=== PATIENT | male | born 1945 | race Caucasian/White ===

== ENCOUNTER 2016-10-16 07:59 | Outpatient (CLI) | payer MEDICARE, OTHER ==
[~2016-10-16] VITALS: Ht 172.7 cm; Wt 113.6 kg
--- NOTE | ~2016-10-16 | OP ---
PATIENT NAME: AMARILYS SANDY MEDICAL RECORD: [id number] :41 LOCATION:D.CAT ADMISSION DATE: SURGEON: ANTONIA INGRAM MD DATE OF OPERATION: 10/16/2016 PROCEDURES: 1. PTCA stent, circumflex and obtuse marginal. 2. PTCA, left circumflex. 3. Left heart catheterization. 4. Selective coronary angiography. 5. Left ventriculogram. INDICATIONS: Angina and coronary artery disease. PROCEDURE IN DETAIL: After informed consent was obtained and after detailed explanation of risks, benefits as well as alternative therapies, the patient elected to proceed with angiogram and angioplasty. The right radial area was prepped and draped in normal sterile fashion. The right radial artery was cannulated via modified Seldinger technique with placement of 6-Luxembourgish sheath. All catheters exchanged through this sheath. FINDINGS: The left ventriculogram was performed in standard 30-degree JAMES view, reveals good cardiac wall motion throughout all segments. Overall ejection fraction estimated at 60%. SELECTIVE CORONARY ANGIOGRAPHY: 1. Left main showed no significant angiographic disease. 2. Left anterior descending has at least 1 area of 70%-80% stenosis, which is very tortuous, will be better delineated with intravascular ultrasound. 3. Left circumflex has previously placed stent that is widely patent. However, proximal to the stent, there is 70%-80% stenosis. 4. The right coronary is totally occluded in the mid vessel, this is a chronic total occlusion. The distal right coronary fills via mzol-vb-womch collaterals. PTCA STENT OF THE LEFT CIRCUMFLEX: The stent used was a 3.0 x 18 mm Resolute, this caused a plaque shift into the circumflex itself. Circumflex was ballooned with 2.5 balloon. Result was 0% residual throughout. OVERALL IMPRESSION: Successful percutaneous transluminal coronary angioplasty stent of the left circumflex going from 80% initial stenosis to 0% residual. PLAN: PTCA stent of the LAD in the near future. TRANSINT:[id number] Voice Confirmation ID: [id number] DOCUMENT ID: [id number] ANTONIA INGRAM MD CC: [id number] DICTATION DATE: 10/16/16 1047 TELEPHONE SALES AGENT: 10/16/162010 DEP CLI 10/16/16 [place] [address]
--- NOTE | ~2016-10-16 | HEMODYNAMI ---
PATIENT:AMARILYS SANDY MEDICAL RECORD: [id number] : 41 LOCATION:[place] ADMISSION DATE: 10/16/16 Generatedon:10/16/201610:47 Patient name: AMARILYS SANDY Patient #: [id number] SSN: : 1945 Date of study: 10/16/2016 Page: Of Hemodynamic Procedure Report Patient Data Patient Demographics Procedure consent was obtained First Name: AMARILYS Gender: Male Last Name: DU : 1945 Middle Initial: L Age: 71 year(s) Patient #: [id number] Race: Unknown Additional ID: [id number] Contact details Address: [facility] [address] State: [place] City: [place] Zip code: [address] Past Medical History Allergies Allergen Reaction Date Comments Reported Other allergy 10/16/2016 Avelox, cepholosporino, Clindamycin, Dilaudid,Keflex, Levotyroxin, Minipreso, PCN, Norvaco, Pravastatin, Sulfa,Zocor. Admission Admission Data Admission Date: 10/16/2016 Admission Time: 7:59 Lab Results Lab Result Date: 10/16/2016 Lab Result Time: 0:00 Biochemistry Name Units Result Min Max BUN mg/dl 15 --(--*-)-- 7 18 Creatinine mg/dl 0.9 --(-*--)-- 0.6 1.3 CBC Name Units Result Min Max Hematocrit % 40 -*(----)-- 42 54 Hemoglobin g/dl 13.5 --(*---)-- 13.5 17.5 Procedure Procedure Types Cath Procedure Diagnostic Procedure C [facility] w/Coronaries PCI Procedure Coronary Stent Initial PTCA Additional Miscellaneous Procedures Moderate Sedation up to 30 minutes Procedure Description Procedure Date Procedure Date: 10/16/2016 Procedure Start Time: 10:28 Procedure End Time: 10:46 Procedure Staff Name Function Geoff Perez MD Performing Physician Marci Counts RT Scrub Matthew Ames RN Nurse Ramon Chiang RT Monitor Procedure Data Cath Procedure Fluoroscopy Diagnostic fluoroscopy Total fluoroscopy Time: 5.6 time: 5.6 min min Diagnostic fluoroscopy Total fluoroscopy dose: dose: 478.63 mGy 478.63 mGy Contrast Material Contrast Material Type Amount (ml) Isovue 300 93 Entry Location Entry Primary Successful Side Size Upsize Upsize Entry Closure Emerson ccessful Closure Location (Fr) 1 (Fr) 2 (Fr) Remarks Device Remarks Radial Right 6 Fr Mechanical artery Short Compression Estimated blood loss: 10 ml Diagnostic catheters Device Type Used For End Catheter Placement Terumo 5Fr Elsie 110cm Procedure catheter Procedure Complications No complications Procedure Medications Medication Administration Route Dosage Oxygen NC 2 l/min Heparin Flush Bag added to field 2 bags (1000units/500ml NS) 0.9% NaCl I.V. 100 ml/hr Radial Cocktail added to field 1 syringe (Verapomil 2mg/Nitro 400mcg/Heparin 1500units) Fentanyl I.V. 50 mcg Versed I.V. 1 mg Fentanyl I.V. 50 mcg Versed I.V. 1 mg Radial Cocktail I.A. 1 syringe (Verapomil 2mg/Nitro 400mcg/Heparin 1500units) Heparin Bolus I.V. 4000 units Integrilin (Bolus I.V. 10.2 ml 2mg/ml) Plavix P.O. 600 mg Hemodynamics Rest HGB: 13.5 (g/dl) Heart Rate: 57 (bpm) Snapshots Pre Cath Intra NCS Post Cath Vital Signs Time Heart Resp SPO2 NIBP (mmHg) Rhythm Pain Sedation Rate (ipm) (%) Status Level (bpm) 10:14:51 54 17 98 224/102(177) NSR 0 (11) 10(A) , No pain 10:19:46 53 19 90 201/94(162) NSR 0 (11) 10(A) , No pain 10:24:35 56 18 96 173/103(131) NSR 0 (11) 10(A) , No pain 10:29:19 56 19 94 155/86(127) NSR 0 (11) 9(A) , No pain 10:33:42 61 18 94 131/83(106) NSR 0 (11) 9(A) , No pain 10:38:02 60 18 95 132/93(128) NSR 0 (11) 9(A) , No pain 10:42:30 59 18 96 138/77(128) NSR 0 (11) 9(A) , No pain 10:46:34 57 16 97 152/82(113) NSR 0 (11) 9(A) , No pain Medications Time Medication Route Dose Verified Delivered Reason Note s Effectiveness by by 10:13:45 Oxygen NC 2 l/min Matthew Castro Per physician Kwaku mAes RN RN 10:13:58 Heparin Flush added 2 bags Matthew Castro used for Bag to Kwaku Ames RN procedure (1000units/500ml field RN NS) 10:14:13 0.9% NaCl I.V. 100 Matthew Castro Per physician ml/hr Kwaku Ames RN RN 10:14:22 Radial Cocktail added 1 Matthew Castro used for (Verapomil to syringe Kwaku Ames RN procedure 2mg/Nitro field RN 400mcg/Heparin 1500units) 10:23:32 Fentanyl I.V. 50 mcg Matthew Hwangy for sedation Kwaku Ames RN RN 10:23:40 Versed I.V. 1 mg Matthew Hwangy for sedation Kwaku Ames RN RN 10:26:03 Fentanyl I.V. 50 mcg Matthew Castro for sedation Kwaku Ames RN RN 10:26:09 Versed I.V. 1 mg Matthew Hwangy for sedation Kwaku Ames RN RN 10:29:19 Radial Cocktail I.A. 1 Matthew Coylerey for (Verapomil syringe Kwaku Perez MD vasodilation 2mg/Nitro RN 400mcg/Heparin 1500units) 10:37:43 Integrilin I.V. 10.2 ml Matthew Castro for wast ed (Bolus 2mg/ml) Kwaku Ames RN antiplatelet 9.8mL of RN therapy integrilin bolus 10:37:43 Heparin Bolus I.V. 4000 Matthew Castro for units Kwaku Ames RN anticoagulation RN 10:46:54 Plavix P.O. 600 mg Matthew Castro for Kwaku Ames RN antiplatelet RN therapy Procedure Log Time Note 9:50:51 Matthew Ames RN sent for patient. Start room use. 9:58:52 Time tracking: Regular hours 9:58:56 Plan of Care:Hemodynamics will remain stable., Cardiac rhythm will remain stable., Comfort level will be maintained., Respiratory function will remain adequate., Patient/ family verbilizes understanding of procedure., Procedure tolerated without complication., Recovers from procedure without complications.. 10:06:10 Patient received from Pre/Post Procedure Room to CCL 3 Alert and oriented. Tansferred to table in Supine position. 10:06:12 Warm blankets applied, and shaun hugger turned on for patient comfort. 10:06:13 Correct patient and procedure confirmed by team. 10:06:14 Signed procedure consent form obtained from patient. 10:06:15 ECG and BP/O2 sat monitors applied to patient. 10:06:17 Full Disclosure recording started 10:11:46 Vital chart was started 10:13:45 Oxygen 2 l/min NC was administered by Matthew Ames RN; Per physician; 10:13:58 Heparin Flush Bag (1000units/500ml NS) 2 bags added to field was administered by Matthew Ames RN; used for procedure; 10:14:13 0.9% NaCl 100 ml/hr I.V. was administered by Matthew Ames RN; Per physician; 10:14:22 Radial Cocktail (Verapomil 2mg/Nitro 400mcg/Heparin 1500units) 1 syringe added to field was administered by Matthew Ames RN; used for procedure; 10:17:41 Baseline sample Acquired. 10:17:48 Rhythm: sinus rhythm 10:18:01 H&P Date Dictated: 10/16/2016 Within 30 days and on chart., H&P Addendum completed by physician on day of procedure. (MUST COMPLETE FOR ALL OUTPATIENTS). 10:18:02 Pre-procedure instructions explained to patient. 10:18:03 Pre-op teaching completed and patient verbalized understanding. 10:18:05 Family in patients room. 10:18:06 Patient NPO since Midnight. 10:21:39 Patient allergic to Other allergyAvelox, cepholosporino, Clindamycin, Dilaudid,Keflex, Levotyroxin, Minipreso, PCN, Norvaco, Pravastatin, Sulfa,Zocor. 10:21:41 Is the patient allergic to Iodine/contrast media? No. 10:21:43 Is patient on blood thinner?No 10:21:44 Patient diabetic? No. 10:21:46 Previous problem with sedation/anesthesia? No ? 10:21:47 Snore? Yes 10:21:48 Sleep apnea? Yes 10:21:49 Deviated septum? No 10:21:49 Opens mouth fully? Yes 10:21:50 Sticks out tongue? Yes 10:21:54 Airway obstruction? No ? 10:21:56 Dentures? No ? 10:21:58 Modified Chris's test Ulnar < 7 seconds 10:21:59 Patient pain scale 0/10 ?. 10:22:03 IV patent on arrival in left hand with 0.9% NaCl at [facility]. 10:22:36 Lab Result : Creatinine 0.9 mg/dl 10::36 Lab Result : BUN 15 mg/dl 10:22:36 Lab Result : Hemoglobin 13.5 g/dl 10:22:36 Lab Result : Hematocrit 40 % 10:22:39 Lab results completed and on chart. 10:22:41 Right Radial & Right Groin area was prepped with chlora-prep and draped in sterile fashion 10:22:42 Alarms reviewed by R. N. 10:22:42 Sharps counted by scrub and verified by R.N. 10:22:44 Use device set Radial Dx 10:22:45 Tegaderm 4 x 4 opened to sterile field. 10:22:46 Acist Manifold opened to sterile field. 10:22:48 Acist Hand Control opened to sterile field. 10:22:49 Acist Syringe opened to sterile field. 10:22:49 Medline Cath Pack opened to sterile field. 10:22:50 Bag Decanter opened to sterile field. 10:22:50 Terumo 6Fr Slender Glidesheath opened to sterile field. 10:22:51 St Benito 260cm J .035 wire opened to sterile field. 10:22:57 Physician arrived 10::58 --------ALL STOP TIME OUT------ 10::58 Final Timeout: patient, procedure, and site verified with staff and physician. All members of the team are in agreement. 10:23:00 Right Radial & Right Groin site verified by team. 10:23:02 Physical assessment completed. ASA score P 2 - A patient with mild systemic disease as per Geoff Perez MD. 10:23:04 Sedation plan: IV Moderate Sedation Versed, Fentanyl 10:23:32 Fentanyl 50 mcg I.V. was administered by Matthew Ames RN; for sedation; 10:23:40 Versed 1 mg I.V. was administered by Matthew Ames RN; for sedation; 10:26:03 Fentanyl 50 mcg I.V. was administered by Matthew Amse RN; for sedation; 10::09 Versed 1 mg I.V. was administered by Matthew Ames RN; for sedation; 10::17 Zero performed for pressure channel P1 10::28 Procedure started. 10::32 Local anesthetic to right radial artery with Lidocaine 2% by Geoff Perez MD.INITIAL ACCESS ONLY 10:28:47 A 6 Fr Short sheath was inserted into the Right Radial artery 10:29:19 Radial Cocktail (Verapomil 2mg/Nitro 400mcg/Heparin 1500units) 1 syringe I.A. was administered by Geoff Perez MD; for vasodilation; 10:29:46 A Pro Player Connectumo 5Fr Elsie 110cm catheter was advanced over the wire and used for Procedure. 10:30:24 Cook [facility] 260CM glide wire opened to sterile field. 10:30:52 glide wire advanced. 10:31:00 Wire removed. 10:31:56 LV gram done using JAMES 10:31:59 Injector settings: Ml/sec: 5, Volume: 15, 10:32:04 EF : 60 % 10:32:08 LCA angiography performed. 10:33:18 Barroso Whisper J 300cm 0.014 guide wire opened to sterile field. 10:33:19 Translimit BasixCompak Inflation Kit opened to sterile field. 10:34:56 Catheter removed. 10:35:41 Cordis 6FR XBLAD 3.5 guide catheter opened to sterile field. 10:37:28 6 Fr xblad 3.5 guide catheter was inserted over the wire 10:37:30 Shopzillaisper wire advanced. 10:37:43 Integrilin (Bolus 2mg/ml) 10.2 ml I.V. was administered by Matthew Ames RN; for antiplatelet therapy; wasted 9.8mL of integrilin bolus 10:37:43 Heparin Bolus 4000 units I.V. was administered by Matthew Ames RN; for anticoagulation; 10:38:11 Wire advanced across lesion. 10:38:49 Inflation Number: 1 A Medtronic Resolute 3.0 X 18 stent was prepped and advanced across the 1st Ob Joslyn. The stent was deployed at 17 [place] for 0:10 (min:sec). 10:39:37 Stent catheter was removed intact over wire. 10:41:02 Inflation number: 1 A Euphora 2.5 x 12 Balloon was prepped and advanced across the Mid CX, then inflated to 17 [place] for 0:10 (min:sec). 10:41:42 Inflation number: 2 The Euphora 2.5 x 12 Balloon was reinflated across the Mid CX, to 17 [place] for 0:10 (min:sec). 10:41:58 Balloon removed over the wire. 10:41:59 Wire removed. 10:41:59 Guide catheter removed. 10:43:01 Terumo TR Band Standard opened to sterile field. 10:43:29 Sheath removed intact; hemostasis achieved with Mechanical Compression to the Right Radial artery. 10:43:31 Procedure ended.(Physican Out) 10:43:42 Fluoroscopy time 05.60 minutes. 10:43:49 Fluoroscopy dose: 478.63 mGy 10:43:49 Flurop Dose total: 478.63 10:43:52 Contrast amount:Isovue 300 93ml. 10:43:54 Sharps counted by scrub and verified by R.N. 10:44:11 TR band inflated with 12cc of air. 10:44:12 Insertion/operative site no bleeding no hematoma. 10:44:19 Post right radial artery:stable, clean and dry 10:44:21 Post Procedure Pulses reassessed and unchanged 10:44:23 Post-procedure physical assessment completed. ASA score P 2 - A patient with mild systemic disease as per Geoff Perez MD. 10:44:25 Post procedure rhythm: unchanged. 10:44:27 Estimated blood loss: 10 ml 10:44:37 Post procedure instruction explained to patient.Patient verbalizes understanding. 10:44:37 Patient needs reinforcement of post procedure teaching. 10:45:19 Procedure type changed to Cath procedure, Diagnostic procedure, LHC, LHC w/Coronaries, PCI procedure, Coronary Stent Initial, PTCA Additional, Miscellaneous Procedures, Moderate Sedation up to 30 minutes 10:46:17 Procedure and supply charges have been captured, reviewed, submitted and are correct. 10:46:18 Procedure Complication : No complications 10:46:20 Vital chart was stopped 10:46:20 See physician's report for complete and final results. 10:46:22 Report given to Pre/Post Procedure Room. 10:46:24 Patient transfered to Pre/Post Procedure Room with Stretcher. 10:46:25 Procedure ended. 10:46:25 Full Disclosure recording stopped 10:46:54 Plavix 600 mg P.O. was administered by Matthew Ames RN; for antiplatelet therapy; 10:47:13 End room use (Document Last) Intervention Summary Intervention Notes Time ActionType Lesion and Equipment Action# Pressure Duration Attributes Used 10:38:[address] Place stent 1st Ob Joslyn Medtronic 1 17 00:10 Resolute 3.0 X 18 stent 10:41:02 Inflate Mid CX Euphora 1 17 00:10 balloon 2.5 x 12 Balloon 10:41:42 Reinflate Mid CX Euphora 2 17 00:10 balloon 2.5 x 12 Balloon Device Usage Item Name Manufacture Quantity Catalog Hospital Part Current Minimal Lot# / Number Charge Number Stock Stock Serial# Code Tegade 4 1 [id number] [id number] 779428 5 x 4 Acist Acist 1 79268 849319 072908 181233 5 Manifold Medical Systems Inc Acist Hand Acist 1 65637 289072 831000 514800 5 Control Medical Systems Inc Acist Acist 1 48003 574176 733221 315200 20 Syringe Medical Systems Inc Medline Cardinal 1 [id number] 170386 99158 069250 5 Cath Pack Health Bag Microtek 1 2001S 743466 47921 527574 5 DecN4MD Medical Inc. Terumo 6Fr Terumo 1 [id number] 673091 209194 796621 [address] [place] 1 557878 467154 685996 427845 30 260cm J .035 wire Terumo 5Fr Terumo 1 40-0580 411949 740946 509068 5 Elsie 110cm catheter Per[employer]ual Technologies 1 [id number] 397580 220866 5 ROADRUNNER FIRM 260CM glide wire Barroso Barroso 1 [id number] 566191 900230 553954 5 Whisper J Vascular 300cm 0.014 guide wire Merit Merit 1 [id number] 253969 318072 680076 15 Segmint Medical Inflation Kit Cordis 6FR Cardinal 1 [id number] 709579 600674 041003 10 XBLAD 3.5 Health guide catheter Medtronic Medtronic 1 [id number] 362295 657143 2 [id number] Resolute 3.0 X 18 stent Euphora 2.5 Medtronic 1 [id number] 968921 245299 821814 5 [id number] x 12 Balloon Terumo TR Terumo 1 [id number] 877964 307686 341285 40 Band Standard Signature Audit [place] Stage Time Signature Unsigned Intra-Procedure 10/16/2016 Ramon Chiang 10:47:28 AM RT(R) Signatures Monitor : Ramon Chiang RT Signature : Date : Time : [place] [id number] [place] [address]
[2016-10-16] MEDS ORDERED: NORMODYNE / TR300 MG PO (08:32)
[2016-10-16] MEDS ORDERED: ASPIRIN325 MG PO (08:32)
[2016-10-16] MEDS ORDERED: DYAZIDE 37.5/251 CAP PO (08:33)
[2016-10-16] MEDS ORDERED: LIPITOR40 MG PO (08:33)
[2016-10-16] MEDS ORDERED: PRINIVIL20 MG PO (08:33)
[2016-10-16 08:35] VITALS: BP 190/72; Ht 172.7 cm; Wt 113.6 kg
[2016-10-16 09:13] LABS: BASOPHILS 0.5 % (0.0-2.0); EOSINOPHILS 5.5 % (0-7); HEMOGLOBIN 13.5 g/dL (13.5-17.5); IMMATURE GRANULOCYTES 0.3 % (0-5); LYMPHOCYTES 33.6 % (15-50); MCHC 33.8 g/dL (31.0-37.0); MCV 91.7 fL (80.0-100.0); MEAN PLATELET VOLUME 10.3 fL (7.4-10.4); MONOCYTES 11.4 % (2-11); NEUTROPHILS 48.7 % (40-80); PLATELET COUNT 241 10x3/uL (130-400); RBC 4.36 10x6/uL (4.20-6.10); RDW 14.4 % (11.5-14.5); WBC 6.3 10x3/uL (4.8-10.8)
[2016-10-16 09:21] LABS: CALC OSMOLALITY 281 mosm/kg (275-300); CALCIUM 8.3 mg/dL (8.5-10.1); CHLORIDE - SERUM 106 mmol/L (98-107); CREATININE - SERUM 0.9 mg/dL (0.6-1.3); GLUCOSE 107 mg/dL (74-106); POTASSIUM - SERUM 4.2 mmol/L (3.5-5.1); SODIUM 141 mmol/L (136-145); UREA NITROGEN 15 mg/dL (7-18); eGFR NON AFRICAN AMERICAN 88 mL/min (90-120)
--- NOTE | 2016-10-16 10:19 | HP ---
PATIENT: AMARILYS MCMILLAN MEDICAL RECORD: [id number] ACCOUNT: [id number] LOCATION:[place] : 41 ADMISSION DATE: 10/16/16 HISTORY AND PHYSICAL EXAMINATION DIAGNOSES: 1. Angina. 2. Shortness of breath. 3. Hypertension. 4. Hyperlipidemia. HISTORY OF PRESENT ILLNESS: Mr. Mcmillan presents with anginal symptomatology, found to have a perfusion defect inferiorly on nuclear stress test continued symptomatology despite maximal medical therapy. He is now brought for cardiac catheterization. PHYSICAL EXAMINATION: GENERAL APPEARANCE: Well-nourished, well-developed, appears stated age. Level of distress, comfortable. PSYCHIATRIC: Mental status, alert, normal affect. Orientation, oriented to time, place and person. EYES: Lids and conjunctiva, noninjected. No discharge, no pallor. ENT: Lips, teeth, gums, normal dentition. Oropharynx, no cyanosis, no pallor. NECK: Carotid arteries, bilateral normal upstroke, no bruits, no thrills. JUGULAR VEINS: No jugular venous pressure or distention. CERVICAL LYMPH NODES: Nontender, nonenlarged. THYROID: Not enlarged. Nontender. No nodules. LUNGS: Respiratory effort, unlabored. CHEST: Normal curvature. No thoracic deformity. No chest wall tenderness. Percussion, resonant. Auscultation, clear. No wheezes, no rales, no rhonchi. CARDIOVASCULAR: Precordial exam, nondisplaced. No heaves or pericardial thrills. Rate and rhythm, regular. Heart sounds, normal S1, normal S2. No S3, no gallop, no rub. Systolic murmur, not heard. Diastolic murmur, not heard. EXTREMITIES: No cyanosis, no edema. Peripheral pulses, full and equal in all extremities, except as noted. No bruits appreciated. ABDOMEN: Soft, nondistended. Normal aorta. No bruit. Nontender. No masses. Liver, nontender, no hepatomegaly. Spleen, nontender, no splenomegaly. MUSCULOSKELETAL: No joint tenderness. No joint swelling. No erythema. NEUROLOGICAL: Normal gait, normal strength, normal tone. SKIN: Warm and dry. REVIEW OF SYSTEMS: The patient reports easy bruising but reports no swollen glands. The patient reports no fever, no night sweats, no significant weight gain, no significant weight loss. No significant exercise tolerance. The patient reports no dry eyes, no irritation, no vision change. Patient reports no difficulty hearing and no ear pain. Patient reports no frequent nose bleeds or nose and sinus problems. Patient reports on arm pain on exertion. No shortness of breath while lying down. No history of heart murmur. Patient reports no cough, no wheezing or coughing up blood. Patient reports no abdominal pain, no vomiting. Normal appetite. No diarrhea and not vomiting blood. No nausea and no constipation. Patient reports no incontinence. No difficulty urinating. No hematuria. No increased frequency. Patient reports no muscle aches. No weakness, no arthralgias, no back pain. No swelling of the extremities. Patient reports no abnormal mole, no jaundice, no rashes. Reports no loss of consciousness. No weakness and no numbness. No seizures, dizziness, HISTORY AND PHYSICAL [id number] AMARILYS MCMILLAN or headaches. The patient reports no depression, no sleep disturbance, feeling safe in a relationship and no alcohol abuse. Patient reports on fatigue. Reports no runny nose or sinus pressure. No itching, no hives, and no frequent sneezing. OVERALL IMPRESSION: Anginal symptomatology despite maximal medical therapy. We will proceed with coronary angiography. Further care depends upon findings of the angiography. TRANSINT:[id number] Voice Confirmation ID: [id number] DOCUMENT ID: [id number] ANTONIA INGRAM MD at 1019 CC: [id number] DICTATION DATE: 10/16/16917 JUNIOR QA ANALYST: 10/16/16 0950 [facility] [address] [place] [address]
[2016-10-16] MEDS ORDERED: PLAVIX75 MG PO (11:26)
--- NOTE | 2016-10-16 12:02 | NUR ---
1115 SITTING UP IN BED SIPPING COFFE, VITALS ALL WNL. R WRIST TR BAND C/D/I WITH NO HEMATOMA OR BLEEDING.
--- NOTE | 2016-10-16 14:27 | NUR ---
1145 SITTING UP IN BED, SLEEPING. VITALS ALL WNL. R WRIST TR BAND C/D/I WITH NO HEMATOMA OR BLEEDING. AT SIDE.
--- NOTE | 2016-10-16 14:30 | NUR ---
4 CC AIR REMOVED FROM R WRIST TR BAND. WILL MONITOR CLOSELY FOR BLEEDING.
--- NOTE | 2016-10-16 14:55 | NUR ---
2CC AIR REMOVED FROM R WRIST TR BAND. PIV REMOVED FROM LEFT HAND WITH BANDAID APPLIED. UP TO BEDSIDE TO DRESS WITH ASSIST FROM .
--- NOTE | 2016-10-16 14:58 | NUR ---
TR BAND REMOVED FROM R WRIST, TEGADERM AND COTTON BALL APPLIED. D/C INSTRUCTIONS DISCUSSED WITH PATIENT. RETURN TIME FOR NEXT WEDNESDAY DISCUSSED WITH PATIENT. WHEELED OUT VIA WHEELCHAIR.
== END 2016-10-16 15:00 | disposition home or self-care (01) ==
LOC: D.CATH 07:59
PROVIDERS: Internal Medicine Interventional Cardiology
DX: I25.119 Atherosclerotic heart disease of native coronary artery with unspecified angina pectoris (principal); I10 Essential (primary) hypertension; E78.5 Hyperlipidemia, unspecified; R06.02 Shortness of breath; R94.30 Abnormal result of cardiovascular function study, unspecified
CPT/HCPCS: 93458; C9600

== ENCOUNTER 2016-10-21 07:50 | Outpatient (CLI) | payer MEDICARE, OTHER ==
[~2016-10-21] VITALS: Ht 172.7 cm; Wt 113.6 kg
--- NOTE | ~2016-10-21 | OP ---
PATIENT NAME: AMARILYS SANDY MEDICAL RECORD: [id number] :41 LOCATION:D.CAT ADMISSION DATE: SURGEON: ANTNOIA INGRAM MD DATE OF OPERATION: 10/21/2016 PROCEDURES: 1. PTCA stent LAD. 2. Selective coronary angiography. 3. Intravascular ultrasound. INDICATION: Angina and coronary artery disease. PROCEDURE IN DETAIL: After informed consent was obtained and after detailed explanation of risks, benefits as well as alternative therapies, the patient elected to proceed with angiogram and angioplasty. The right radial area was prepped and draped in normal sterile fashion. Right radial artery was cannulated via modified Seldinger technique with placement of 6-Mohawk sheath. All catheters exchanged through this sheath. FINDINGS: The left anterior descending has a 74% stenosis proximally confirmed by intravascular ultrasound. This was addressed with 3.0 x 30 and 2.75 x 12, both Resolute stents. Result was 0% residual stenosis. OVERALL IMPRESSION: Successful percutaneous transluminal coronary angioplasty stent of the left anterior descending going from 74% initial stenosis confirmed by intravascular ultrasound to 0% residual stenosis. TRANSINT:[id number] Voice Confirmation ID: [id number] DOCUMENT ID: [id number] ANTONIA INGRAM MD CC: [id number] DICTATION DATE: 10/21/16 0951 GRAINING PRESS OPERATOR: 10/21/16 1125 [facility] [address] [place] [id number]
--- NOTE | ~2016-10-21 | HEMODYNAMI ---
PATIENT:AMARILYS SANDY MEDICAL RECORD: [id number] : 41 LOCATION:[facility] ADMISSION DATE: 10/21/16 Generatedon:10/21/20169:52 Patient name: AMARILYS SANDY Patient #: [id number] SSN: : 1945 Date of study: 10/21/2016 Page: Of Hemodynamic Procedure Report Patient Data Patient Demographics Procedure consent was obtained First Name: AMARILYS Gender: Male Last Name: DU : 1945 Middle Initial: L Age: 71 year(s) Patient #: [id number] Race: Unknown Additional ID: [id number] Contact details Address: [address] [place] [address] State: [place] City: [place] Zip code: [address] Past Medical History Allergies Allergen Reaction Date Comments Reported Other allergy 10/16/2016 Avelox, cepholosporino, Clindamycin, Dilaudid,Keflex, Levotyroxin, Minipreso, PCN, Norvaco, Pravastatin, Sulfa,Zocor. Admission Admission Data Admission Date: 10/21/2016 Admission Time: 7:50 Lab Results Lab Result Date: 10/21/2016 Lab Result Time: 0:00 Biochemistry Name Units Result Min Max BUN mg/dl 15 --(--*-)-- 7 18 Creatinine mg/dl 0.9 --(-*--)-- 0.6 1.3 CBC Name Units Result Min Max Hemoglobin g/dl 13.8 --(*---)-- 13.5 17.5 Procedure Procedure Types Cath Procedure Diagnostic Procedure FFR/IVUS Intra-Coronary IVUS Initial PCI Procedure Coronary Stent Initial Miscellaneous Procedures Moderate Sedation up to 30 minutes Procedure Description Procedure Date Procedure Date: 10/21/2016 Procedure Start Time: 9:34 Procedure End Time: 9:50 Procedure Staff Name Function Geoff Perez MD Performing Physician Eduardo Santiago RT Scrub Shea Villalpando RN Nurse Evangelist Suit RT Monitor Procedure Data Cath Procedure Fluoroscopy Diagnostic fluoroscopy Total fluoroscopy Time: 5.6 time: 5.6 min min Diagnostic fluoroscopy Total fluoroscopy dose: dose: 1012 mGy 1012 mGy Contrast Material Contrast Material Type Amount (ml) Isovue 300 118 Entry Location Entry Primary Successful Side Size Upsize Upsize Entry Closure Emerson ccessful Closure Location (Fr) 1 (Fr) 2 (Fr) Remarks Device Remarks Radial Right 6 Fr Mechanical artery Short Compression Procedure Complications No complications Procedure Medications Medication Administration Route Dosage Oxygen NC 2 l/min Heparin Flush Bag added to field 2 bags (1000units/500ml NS) Lidocaine 2% added to field 20 Radial Cocktail added to field 1 syringe (Verapomil 2mg/Nitro 400mcg/Heparin 1500units) Versed I.V. 1 mg Fentanyl I.V. 50 mcg Versed I.V. 1 mg Fentanyl I.V. 50 mcg Heparin Bolus I.V. 4000 units Radial Cocktail I.A. 1 syringe (Verapomil 2mg/Nitro 400mcg/Heparin 1500units) Fentanyl I.V. 50 mcg Hemodynamics Rest HGB: 13.8 (g/dl) Heart Rate: 57 (bpm) Snapshots Pre Cath Intra NCS Post Cath Vital Signs Time Heart Resp SPO2 NIBP (mmHg) Rhythm Pain Sedation Rate (ipm) (%) Status Level (bpm) 9:19:13 54 16 98 223/104(180) NSR 0 (11) 10(A) , No pain 9:23:55 54 19 100 222/103(175) NSR 0 (11) 10(A) , No pain 9:28:26 57 16 97 188/101(151) NSR 0 (11) 10(A) , No pain 9:32:54 52 16 97 183/90(142) NSR 0 (11) 10(A) , No pain 9:37:08 61 16 96 134/90(119) NSR 0 (11) 9(A) , No pain 9:42:07 61 16 95 Measuring NSR 0 (11) 9(A) , No pain 9:42:25 64 16 95 119/69(100) NSR 0 (11) 9(A) , No pain 9:46:31 62 16 96 135/95(131) NSR 0 (11) 9(A) , No pain 9:50:31 64 16 95 136/87(125) NSR 0 (11) 9(A) , No pain Medications Time Medication Route Dose Verified Delivered Reason Notes Effectiveness by by 9:14:57 Oxygen NC 2 l/min Geoff Samaniegoca Per physician Chris Villalpando RN 9:15:10 Heparin Flush added 2 bags Geoff Tellez used for Bag to Chris Perez MD procedure (1000units/500ml field NS) 9:15:18 Lidocaine 2% added 20ml Geoff Tellez used for to vial Chris Perez MD procedure field 9:15:27 Radial Cocktail added 1 Geoff Tellez used for (Verapomil to syringe Chris Perez MD procedure 2mg/Nitro field 400mcg/Heparin 1500units) 9:29:44 Versed I.V. 1 mg Geoff Shea for sedation Chris Villalpando RN 9:29:53 Fentanyl I.V. 50 mcg Geoff Shea for sedation Chris Villalpando RN 9:32:44 Versed I.V. 1 mg Geoff Shea for sedation Chris Villalpando RN 9:32:47 Fentanyl I.V. 50 mcg Geoff Shea for sedation Chris Villalpando RN 9:34:37 Fentanyl I.V. 50 mcg Geoff Tellez for sedation Chris Perez MD 9:35:01 Radial Cocktail I.A. 1 Geoff Tellez for (Verapomil syringe Chris Perez MD vasodilation 2mg/Nitro 400mcg/Heparin 1500units) 9:35:39 Heparin Bolus I.V. 4000 Geoff Shea for dose units Chris Villalpando RN anticoagulation verified [facility] dr perez Procedure Log Time Note 8:55:57 ACC Patient presents with Stable Angina CCS Anginal Class 2--Slight limitation of ordinary activity. 8:56:00 Diagnostic Cath status Elective 8:56:02 Evangelist SCHNEIDER(R) sent for patient. Start room use. 8:56:04 Time tracking: Regular hours 8:56:09 Plan of Care:Hemodynamics will remain stable., Cardiac rhythm will remain stable., Comfort level will be maintained., Respiratory function will remain adequate., Patient/ family verbilizes understanding of procedure., Procedure tolerated without complication., Recovers from procedure without complications.. 8:56:59 Lab Result : BUN 15 mg/dl 8:56:59 Lab Result : Hemoglobin 13.8 g/dl 8:56:59 Lab Result : Creatinine 0.9 mg/dl 8:57:04 Lab results completed and on chart. 9:10:26 Patient received from Pre/Post Procedure Room to CCL 2 Alert and oriented. Tansferred to table in Supine position. 9:14:46 Vital chart was started 9:14:57 Oxygen 2 l/min NC was administered by Shea Villalpando RN; Per physician; 9:15:10 Heparin Flush Bag (1000units/500ml NS) 2 bags added to field was administered by Geoff Perez MD; used for procedure; 9:15:18 Lidocaine 2% 20ml vial added to field was administered by Geoff Perez MD; used for procedure; 9:15:27 Radial Cocktail (Verapomil 2mg/Nitro 400mcg/Heparin 1500units) 1 syringe added to field was administered by Geoff Perez MD; used for procedure; 9:16:32 Warm blankets applied, and shaun hugger turned on for patient comfort. 9:16:33 Correct patient and procedure confirmed by team. 9:16:34 Signed procedure consent form obtained from patient. 9:16:34 ECG and BP/O2 sat monitors applied to patient. 9:23:00 Baseline sample Acquired. 9:23:02 Rhythm: sinus rhythm 9:23:03 Full Disclosure recording started 9:23:35 H&P Date Dictated: 10/21/2016 Within 30 days and on chart.. 9:23:37 Pre-procedure instructions explained to patient. 9:23:37 Pre-op teaching completed and patient verbalized understanding. 9:23:38 Family in waiting room. 9:23:40 Patient NPO since Midnight. 9:23:47 Is the patient allergic to Iodine/contrast media? No. 9:23:49 Is patient on blood thinner?Yes 9:23:51 ACC The patient was administered the following blood thiners within the last 24 hours: ACCPlavix 9:23:53 Patient diabetic? No. 9:23:55 ----Pre-sedation anethsthesia assessment.---- 9:23:57 Previous problem with sedation/anesthesia? No ? 9:23:58 Snore? Yes 9:24:00 Sleep apnea? Yes 9:24:01 Deviated septum? No 9:24:02 Opens mouth fully? Yes 9:24:04 Sticks out tongue? Yes 9:24:06 Airway obstruction? No ? 9:24:08 Dentures? No ? 9:24:10 Pre procedure: right dorsailis pedis pulse 1+ Palpable, but thready & weak; easily obliterated 9:24:15 Modified Chris's test Ulnar > 7 seconds. 9:24:17 Patient pain scale 0/10 ?. 9:24:20 IV patent on arrival in left hand with 0.9% NaCl at 10ml/hr. 9:24:25 Right Radial & Right Groin area was prepped with chlora-prep and draped in sterile fashion 9:24:26 Alarms reviewed by R. N. 9:24: Sharps counted by scrub and verified by R.N. 9:28:54 --------ALL STOP TIME OUT------ 9::54 Final Timeout: patient, procedure, and site verified with staff and physician. All members of the team are in agreement. 9:28:59 Right Radial & Right Groin site verified by team. 9:29:02 Physical assessment completed. ASA score P 2 - A patient with mild systemic disease as per Geoff Perez MD. 9:29:06 Sedation plan: IV Moderate Sedation Versed, Fentanyl 9:29:44 Versed 1 mg I.V. was administered by Shea Villalpando RN; for sedation; 9:29:48 Use device set Radial PCI 9:29:50 Acist Syringe opened to sterile field. 9:29:50 Acist Hand Control opened to sterile field. 9:29:51 Bag Decanter opened to sterile field. 9:29:51 Medline Cath Pack opened to sterile field. 9:29:51 Merit BasixCompak Inflation Kit opened to sterile field. 9:29:52 Terumo 6Fr Slender Glidesheath opened to sterile field. 9:29:52 Acist Manifold opened to sterile field. 9::53 Fentanyl 50 mcg I.V. was administered by Shea Villalpando RN; for sedation; 9:29:53 Tegaderm 4 x 4 opened to sterile field. 9:29:53 MBrace Wrist Support opened to sterile field. 9:29:54 [place] 260cm J .035 wire opened to sterile field. 9:30:03 [place] Whisper J 300cm 0.014 guide wire opened to sterile field. 9:30:03 [place] Stanley Eagleye IVUS Catheter opened to sterile field. 9:32:44 Versed 1 mg I.V. was administered by Shea Villalpando RN; for sedation; 9:32:47 Fentanyl 50 mcg I.V. was administered by Shea Villalpando RN; for sedation; 9:34:19 Zero performed for pressure channel P1 9:34:33 Procedure started. 9:34:37 Fentanyl 50 mcg I.V. was administered by Geoff Perez MD; for sedation; 9:34:41 Local anesthetic to right radial artery with Lidocaine 2% by Geoff Perez MD.INITIAL ACCESS ONLY 9:34:52 A 6 Fr Short sheath was inserted into the Right Radial artery 9:35:01 Radial Cocktail (Verapomil 2mg/Nitro 400mcg/Heparin 1500units) 1 syringe I.A. was administered by Geoff Perez MD; for vasodilation; 9:35:22 Cordis 6FR XBLAD 3.5 guide catheter opened to sterile field. 9:35:39 Heparin Bolus 4000 units I.V. was administered by Shea Villalpando RN; for anticoagulation; dose verified wtih dr perez 9:35:39 6 Fr XBLAD 3.5 guide catheter was inserted over the wire 9:36:54 Guide catheter removed. 9:37:02 Cordis 6FR XBLAD 4.0 guide catheter opened to sterile field. 9:37:11 6 Fr XBLAD 4 guide catheter was inserted over the wire 9:38:32 WHISPER wire advanced. 9:40:01 FFR/IVUS 9:40:01 IVUS catheter advanced over wire. 9:40:02 IVUS pass to LAD lesion performed. 9:43:47 IVUS catheter removed over wire. 9:44:44 Inflation Number: 1 A Medtronic Resolute 3.0 X 30 stent was prepped and advanced across the Mid LAD. The stent was deployed at 13 [place] for 0:14 (min:sec). 9:45:03 Procedure type changed to Cath procedure, Diagnostic procedure, FFR/IVUS, Intra-Coronary IVUS Initial, PCI procedure, Coronary Stent Initial, Miscellaneous Procedures, Moderate Sedation up to 30 minutes 9:45:53 Stent catheter was removed intact over wire. 9:47:21 Inflation Number: 2 A Medtronic Resolute 2.75 X 12 stent was prepped and advanced across the Mid LAD. The stent was deployed at 13 [place] for 0:13 (min:sec). 9:47:29 Stent catheter was removed intact over wire. 9:47:30 Wire removed. 9:47:30 Guide catheter removed. 9:47:39 Contrast amount:Isovue 300 118ml. 9:47:45 Terumo TR Band Standard opened to sterile field. 9:47:51 Sheath removed intact; hemostasis achieved with Mechanical Compression to the Right Radial artery. 9:47:53 Procedure ended.(Physican Out) 9:48:48 Fluoroscopy time 05.60 minutes. 9:48:53 Flurop Dose total: 1012 9:48:53 Fluoroscopy dose: 1012 mGy 9:48:54 Sharps counted by scrub and verified by R.N. 9:48:56 TR band inflated with 10cc of air. 9:48:57 Insertion/operative site no bleeding no hematoma. 9:49:03 Post right radial artery:stable 9:49:04 Post Procedure Pulses reassessed and unchanged 9:49:10 Post-procedure physical assessment completed. ASA score P 2 - A patient with mild systemic disease as per Geoff Perez MD. 9:49:13 Post procedure rhythm: sinus rhythm 9:49:14 Post procedure instruction explained to patient.Patient verbalizes understanding. 9:50:06 Procedure and supply charges have been captured, reviewed, submitted and are correct. 9:50:11 Procedure Complication : No complications 9:50:15 Vital chart was stopped 9:50:15 See physician's report for complete and final results. 9:50:17 Report given to Pre/Post Procedure Room. 9:50:19 Patient transfered to Pre/Post Procedure Room with Stretcher. 9:50:21 Procedure ended. 9:50:21 Full Disclosure recording stopped 9:50:25 End room use (Document Last) Intervention Summary Intervention Notes Time ActionType Lesion and Equipment Action# Pressure Duration Attributes Used 9:44:44 Place stent Mid LAD Medtronic 1 13 00:15 Resolute 3.0 X 30 stent 9:47:21 Place stent Mid LAD Medtronic 2 13 00:13 Resolute 2.75 X 12 stent Device Usage Item Name Manufacture Quantity Catalog Hospital Part Current Minimal Lot# / Number Charge Number Stock Stock Serial# Code Acist Acist 1 [id number] [id number] 230018 [id number] 20 Syringe Medical Systems Inc Acist Hand Acist 1 92091 363796 303395 544899 5 Control Medical Systems Inc Bag Microtek 1 2002S 071750 35782 195428 5 Decanter Medical Inc. Medline Cardinal 1 [id number] 30768 916814 5 Cath Pack [facility]it 1 [id number] 531248 298242 002683 15 Arigami Sem[employer] Systems Private Medical Inflation Kit Terumo 6Fr Terumo 1 [id number] 418888 156888 926578 40 Slender Glidesheath Acist Acist 1 55185 043114 232474 808993 5 Realtime Technology Medical Systems Inc Tegaderm 4 3M 1 1626W 965808 271722 770026 5 x 4 MBrace Advanced 1 [id number] 085331 75451 486709 5 [address] [facility] [place] 1 268384 938486 204960 036625 30 260cm J .035 wire [place] Barroso 1 [id number] 675861 457848 568864 5 Whisper J Vascular 300cm 0.014 guide wire [place] 1 [id number] 825958 043282 053551 8 Stanley Eagleye IVUS Catheter Cordis 6FR Cardinal 1 [id number] 427250 908289 170310 10 XBLAD 3.5 Health guide catheter Cordis 6FR Cardinal 1 [id number] 251390 664129 752628 3 XBLAD 4.0 Health guide catheter Medtronic Medtronic 1 [id number] 698962 566321 5 [id number] Resolute 3.0 X 30 stent Medtronic Medtronic 1 [id number] 242151 336974 9 [id number] Resolute 2.75 X 12 stent Terumo TR Terumo 1 [id number] 330960 870565 137145 40 Band Standard Signature Audit [place] Stage Time Signature Unsigned Intra-Procedure 10/21/2016 Evangelist Campbell 9:52:34 AM RT(R) Signatures Monitor : Evangelist Campbell RT Signature : Date : Time : [address] [place] [address]
--- NOTE | ~2016-10-21 | HP ---
PATIENT: AMARILYS MCMILLAN MEDICAL RECORD: [id number] ACCOUNT: [id number] LOCATION:[place] : 41 ADMISSION DATE: 10/21/16 HISTORY AND PHYSICAL EXAMINATION ADMITTING DIAGNOSES: 1. Angina. 2. Dyspnea on exertion. 3. Hypertension. 4. Hyperlipidemia. 5. Coronary artery disease. HISTORY OF PRESENT ILLNESS: Mr. Mcmillan presented last week with unstable angina, found to have 3-vessel coronary artery disease, total occlusion of his RCA, significant disease of the left circumflex and LAD, underwent successful PTCA stent of the left circumflex. He has 90% in-stent restenosis of the diagonal in the LAD as well as LAD stenosis. We will now proceed with percutaneous transluminal coronary angioplasty stent of the LAD. PHYSICAL EXAMINATION: GENERAL APPEARANCE: Well-nourished, well-developed, appears stated age. Level of distress, comfortable. PSYCHIATRIC: Mental status, alert, normal affect. Orientation, oriented to time, place and person. EYES: Lids and conjunctiva, noninjected. No discharge, no pallor. ENT: Lips, teeth, gums, normal dentition. Oropharynx, no cyanosis, no pallor. NECK: Carotid arteries, bilateral normal upstroke, no bruits, no thrills. JUGULAR VEINS: No jugular venous pressure or distention. CERVICAL LYMPH NODES: Nontender, nonenlarged. THYROID: Not enlarged. Nontender. No nodules. LUNGS: Respiratory effort, unlabored. CHEST: Normal curvature. No thoracic deformity. No chest wall tenderness. Percussion, resonant. Auscultation, clear. No wheezes, no rales, no rhonchi. CARDIOVASCULAR: Precordial exam, nondisplaced. No heaves or pericardial thrills. Rate and rhythm, regular. Heart sounds, normal S1, normal S2. No S3, no gallop, no rub. Systolic murmur, not heard. Diastolic murmur, not heard. EXTREMITIES: No cyanosis, no edema. Peripheral pulses, full and equal in all extremities, except as noted. No bruits appreciated. ABDOMEN: Soft, nondistended. Normal aorta. No bruit. Nontender. No masses. Liver, nontender, no hepatomegaly. Spleen, nontender, no splenomegaly. MUSCULOSKELETAL: No joint tenderness. No joint swelling. No erythema. NEUROLOGICAL: Normal gait, normal strength, normal tone. SKIN: Warm and dry. REVIEW OF SYSTEMS: The patient reports easy bruising but reports no swollen glands. The patient reports no fever, no night sweats, no significant weight gain, no significant weight loss. No significant exercise tolerance. The patient reports no dry eyes, no irritation, no vision change. Patient reports no difficulty hearing and no ear pain. Patient reports no frequent nose bleeds or nose and sinus problems. Patient reports on arm pain on exertion. No shortness of breath while lying down. No history of heart murmur. Patient reports no cough, no wheezing or coughing up blood. Patient reports no abdominal pain, no vomiting. Normal appetite. No diarrhea and not vomiting blood. No nausea and no constipation. Patient reports no incontinence. No difficulty urinating. No hematuria. No increased frequency. Patient reports HISTORY AND PHYSICAL [id number] DUAMARILYS Wiley no muscle aches. No weakness, no arthralgias, no back pain. No swelling of the extremities. Patient reports no abnormal mole, no jaundice, no rashes. Reports no loss of consciousness. No weakness and no numbness. No seizures, dizziness, or headaches. The patient reports no depression, no sleep disturbance, feeling safe in a relationship and no alcohol abuse. Patient reports on fatigue. Reports no runny nose or sinus pressure. No itching, no hives, and no frequent sneezing. OVERALL IMPRESSION: Anginal symptomatology with significant disease of the LAD and LAD diagonal. We will proceed with transcatheter revascularization of these territories. TRANSINT:[id number] Voice Confirmation ID: [id number] DOCUMENT ID: [id number] ANTONIA INGRAM MD CC: [id number] DICTATION DATE: 10/21/16913 ELECTRONICS ASSEMBLER AND TESTER: 10/21/16 1004 [facility] [address] [id number]
[~2016-10-21 07:50] MED LIST: ASPIRIN325 MG PO; DYAZIDE 37.5/251 CAP PO; LIPITOR40 MG PO; NORMODYNE / TR300 MG PO; PLAVIX75 MG PO; PRINIVIL20 MG PO
[2016-10-21 08:07] VITALS: Ht 172.7 cm; Wt 113.6 kg
[2016-10-21 08:26] LABS: BASOPHILS 0.8 % (0.0-2.0); EOSINOPHILS 7.4 % (0-7); HEMATOCRIT 40.9 % (42.0-54.0); HEMOGLOBIN 13.8 g/dL (13.5-17.5); IMMATURE GRANULOCYTES 0.3 % (0-5); LYMPHOCYTES 29.6 % (15-50); MCH 31.1 pg (26.0-34.0); MCHC 33.7 g/dL (31.0-37.0); MCV 92.1 fL (80.0-100.0); MEAN PLATELET VOLUME 9.9 fL (7.4-10.4); NEUTROPHILS 48.9 % (40-80); PLATELET COUNT 215 10x3/uL (130-400); RBC 4.44 10x6/uL (4.20-6.10); RDW 14.6 % (11.5-14.5); WBC 6.6 10x3/uL (4.8-10.8)
[2016-10-21 08:47] LABS: CALC OSMOLALITY 281 mosm/kg (275-300); CALCIUM 8.7 mg/dL (8.5-10.1); CARBON DIOXIDE 27.4 mmol/L (21.0-32.0); CHLORIDE - SERUM 103 mmol/L (98-107); CREATININE - SERUM 0.9 mg/dL (0.6-1.3); GLUCOSE 105 mg/dL (74-106); POTASSIUM - SERUM 4.4 mmol/L (3.5-5.1); SODIUM 141 mmol/L (136-145); UREA NITROGEN 15 mg/dL (7-18); eGFR NON AFRICAN AMERICAN 88 mL/min (90-120)
--- NOTE | 2016-10-21 10:26 | NUR ---
1020 SITTING UP IN BED. ROOM AIR WITH NO RESP DISTRESS. VITALS ALL WNL. NSR RATE 61 W NO C/O CHEST PAIN. PULSES PALP X 4. R WRIST TR BAND C/D/I WITH NO HEMATOMA OR BLEEDING. AT BEDSIDE. DENIES NEEDS AT THIS TIME.
--- NOTE | 2016-10-21 13:38 | NUR ---
1100 RESTING WITH EYES CLOSED, ROOM AIR WITH NO DISTRESS. R WRIST TR BAND C/D/I WITH NO BLEEDING OR HEMATOMA. AT BEDSIDE. 1145 SITTING UP IN BED, EATING TURKEY SANDWICH. R WRIST TR BAND C/D/I WITH NO HEMATOMA OR BLEEDING. 1230 R WRIST TR BAND REMAINS C/D/I, VOIDED 400CC URINE VIA URINAL. 1330 4CC AIR REMOVED FROM R WRIST TR BAND. WILL MONITOR CLOSELY FOR BLEEDING.
--- NOTE | 2016-10-21 13:51 | NUR ---
PIV REMOVED FROM LEFT HAND WITH BANDAID APPLIED, 2CC MORE AIRE REMOVED FROM R WRIST TR BAND. UP TO BEDSIDE TO DRESS WITH ASSIST FROM .
== END 2016-10-21 14:10 | disposition home or self-care (01) ==
LOC: D.CATH 07:50
PROVIDERS: Internal Medicine Interventional Cardiology
DX: I25.119 Atherosclerotic heart disease of native coronary artery with unspecified angina pectoris (principal); I10 Essential (primary) hypertension; E78.5 Hyperlipidemia, unspecified; R06.00 Dyspnea, unspecified
CPT/HCPCS: 92978; C9600

== ENCOUNTER 2018-03-02 07:21 | Outpatient (CLI) | payer MEDICARE, OTHER ==
[~2018-03-02] VITALS: Ht 172.7 cm; Wt 115.9 kg
--- NOTE | ~2018-03-02 | HEMODYNAMI ---
PATIENT:AMARILYS SANDY MEDICAL RECORD: [id number] : 41 LOCATION:[facility] ADMISSION DATE: 03/02/18 Generatedon:03/02/201810:06 Patient name: AMARILYS SANDY Patient #: [id number] SSN: : 1945 Date of study: 03/02/2018 Page: Of Hemodynamic Procedure Report Patient Data Patient Demographics Procedure consent was obtained First Name: AMARILYS Gender: Male Last Name: DU : 1945 Middle Initial: L Age: 72 year(s) Patient #: [id number] Race: Unknown Additional ID: [id number] Contact details Address: [place] [address] State: [place] City: [place] Zip code: [address] Past Medical History Allergies Allergen Reaction Date Comments Reported Other allergy 10/16/2016 Avelox, cepholosporino, Clindamycin, Dilaudid,Keflex, Levotyroxin, Minipreso, PCN, Norvaco, Pravastatin, Sulfa,Zocor. Admission Admission Data Admission Date: 03/02/2018 Admission Time: 7:21 Admit Source: Other Procedure Procedure Types Cath Procedure Diagnostic Procedure [facility] w/Coronaries PCI Procedure Coronary Stent Coronary Stent Initial Procedure Description Procedure Date Procedure Date: 03/02/2018 Procedure Start Time: 9:46 Procedure End Time: 10:05 Procedure Staff Name Function Geoff Perez MD Performing Physician Eduardo Santiago RT Monitor Ramon Chiang RT Scrub Matthew Ames RN Nurse Procedure Data Cath Procedure Fluoroscopy Diagnostic fluoroscopy Total fluoroscopy Time: 5.3 time: 5.3 min min Diagnostic fluoroscopy Total fluoroscopy dose: 617 dose: 617 mGy mGy Contrast Material Contrast Material Type Amount (ml) Isovue 300 98 Entry Location Entry Primary Successful Side Size Upsize Upsize Entry Closure Emerson ccessful Closure Location (Fr) 1 (Fr) 2 (Fr) Remarks Device Remarks Radial Right 6 Fr Mechanical artery Short Compression Estimated blood loss: 10 ml Diagnostic catheters Device Type Used For End Catheter Placement DIAGNOSTIC [place] 110cm 5 Procedure Fr catheter ([id number]) DIAGNOSTIC AR 2 MOD 5 Fr Procedure catheter ([id number]) Procedure Complications No complications Procedure Medications Medication Administration Route Dosage Oxygen etCO2 Nasal cannula 2 l/min Heparin Flush Bag added to field 2 bags (1000units/500ml NS) 0.9% NaCl I.V. 100 ml/hr Radial Cocktail added to field 1 syringe (Verapomil 2mg/Nitro 400mcg/Heparin 1500units) Fentanyl I.V. 50 mcg Versed I.V. 1 mg Fentanyl I.V. 50 mcg Versed I.V. 1 mg Heparin Bolus I.V. 4000 units Hemodynamics Rest Heart Rate: 58 (bpm) Snapshots Pre Cath Intra NCS Post Cath Vital Signs Time Heart Resp SPO2 etCO2 NIBP (mmHg) Rhythm Pain Sedation Rate (ipm) (%) (mmHg) Status Level (bpm) 9:27:52 58 17 95 0 143/81(118) NSR 0 (11) 10(A) , No pain 9:32:19 55 17 97 33 151/85(126) NSR 0 (11) 10(A) , No pain 9:36:47 61 17 95 27 131/74(115) NSR 0 (11) 10(A) , No pain 9:41:03 54 16 92 0 112/76(106) NSR 0 (11) 10(A) , No pain 9:45:13 57 16 95 0 108/68(87) NSR 0 (11) 10(A) , No pain 9:49:35 59 16 93 15 102/49(94) NSR 0 (11) 9(A) , No pain 9:53:49 60 16 93 15 104/71(84) NSR 0 (11) 9(A) , No pain 9:58:01 71 16 95 7.5 118/75(107) NSR 0 (11) 9(A) , No pain 10:02:17 62 16 96 30.8 118/65(80) NSR 0 (11) 9(A) , No pain Medications Time Medication Route Dose Verified Delivered Reason Note s Effectiveness by by 9:28:56 Oxygen etCO2 2 l/min Geoff Castro Per physician Nasal Chris Ames RN cannula 9:29:04 Heparin Flush added 2 bags Geoff Castro used for Bag to Chris Ames RN procedure (1000units/500ml field NS) 9:29:12 0.9% NaCl I.V. 100 Geoff Hwangy Per physician ml/hr Chris Ames RN 9:29:21 Radial Cocktail added 1 Geoff Castro used for (Verapomil to syringe Chris Ames RN procedure 2mg/Nitro field 400mcg/Heparin 1500units) 9:44:43 Fentanyl I.V. 50 mcg Geoff Castro for sedation Chris Ames RN 9:44:50 Versed I.V. 1 mg Geoff Castro for sedation Chris Ames RN 9:47:08 Fentanyl I.V. 50 mcg Geoff Castro for sedation Chris Ames RN 9:47:13 Versed I.V. 1 mg Geoff Hwangy for sedation Chris Ames RN 9:55:33 Heparin Bolus I.V. 4000 Geoff Hwangy for units Chris Ames RN anticoagulation Procedure Log Time Note 9:00:34 Eduardo Santiago RT(R) sent for patient. Start room use. 9:05:40 Informed consent obtained and on chart 9:05:44 Admit Source: Other 9:06:17 Diagnostic Cath status Elective 9:06:18 Time tracking: Regular hours (M-F 7:00 - 5:00) 9:06:56 Plan of Care:Hemodynamics will remain stable., Cardiac rhythm will remain stable., Comfort level will be maintained., Respiratory function will remain adequate., Patient/ family verbilizes understanding of procedure., Procedure tolerated without complication., Recovers from procedure without complications.. 9:07:42 H&P Date Dictated: 02/24/2018 Within 30 days and on chart., H&P Addendum completed by physician on day of procedure. (MUST COMPLETE FOR ALL OUTPATIENTS). 9:17:30 Patient received from Pre/Post Procedure Room to CCL 3 Alert and oriented. Tansferred to table in Supine position. 9:17:31 Warm blankets applied, and shaun hugger turned on for patient comfort. 9:17:32 Correct patient and procedure confirmed by team. 9:17:41 Pre-procedure instructions explained to patient. 9:17:42 Pre-op teaching completed and patient verbalized understanding. 9:24:25 ECG and BP/O2 sat monitors applied to patient. 9:25:42 Vital chart was started 9:28:56 Oxygen 2 l/min etCO2 Nasal cannula was administered by Matthew Ames RN; Per physician; 9:29:04 Heparin Flush Bag (1000units/500ml NS) 2 bags added to field was administered by Matthew Ames RN; used for procedure; 9:29:12 0.9% NaCl 100 ml/hr I.V. was administered by Matthew Ames RN; Per physician; 9:29:21 Radial Cocktail (Verapomil 2mg/Nitro 400mcg/Heparin 1500units) 1 syringe added to field was administered by Matthew Ames RN; used for procedure; 9:29:51 Baseline sample Acquired. 9:29:53 Rhythm: sinus bradycardia 9:29:54 Full Disclosure recording started 9:29:58 Family in patients room. 9:29:59 Patient NPO since Midnight. 9:30:06 Is the patient allergic to Iodine/contrast media? No. 9:30:09 Is patient on blood thinner?Yes 9:30:11 ACC The patient was administered the following blood thiners within the last 24 hours: ACCPlavix 9:30:13 Patient diabetic? No. 9:30:15 Previous problem with sedation/anesthesia? No ? 9:30:16 Snore? Yes 9:30:17 Sleep apnea? Yes 9:30:18 Deviated septum? No 9:30:18 Opens mouth fully? Yes 9:30:35 Sticks out tongue? Yes 9:30:37 Airway obstruction? No ? 9:30:40 Dentures? No ? 9:30:43 Pre procedure: right dorsailis pedis pulse 1+ Palpable, but thready & weak; easily obliterated 9:30:46 Modified Chris's test Ulnar < 7 seconds 9:30:48 Patient pain scale 0/10 ?. 9:31:02 IV patent on arrival in left forearm with 0.9% NaCl at [facility]. 9:31:04 Lab results completed and on chart. 9:31:20 Right Radial & Right Groin area was prepped with chlora-prep and draped in sterile fashion 9:31:22 Alarms reviewed by RFrancheska N. 9:31:22 Sharps counted by scrub and verified by RFrancheskaNFrancheska 9:44:06 --------ALL STOP TIME OUT------ 9:44:07 Final Timeout: patient, procedure, and site verified with staff and physician. All members of the team are in agreement. 9:44:10 Right Radial & Right Groin site verified by team. 9:44:13 Physical assessment completed. ASA score P 2 - A patient with mild systemic disease as per Geoff Perez MD. 9:44:18 Sedation plan: IV Moderate Sedation Medication:Versed, Fentanyl 9:44:43 Fentanyl 50 mcg I.V. was administered by Matthew Ames RN; for sedation; 9:44:50 Versed 1 mg I.V. was administered by Matthew Ames RN; for sedation; 9:45:54 Use device set Radial Dx or PCI 9:45:57 Tegaderm 4 x 4 (1626W) opened to sterile field. 9:46:01 ACIST Hand Control (51744) opened to sterile field. 9:46:01 ACIST Manifold (78693) opened to sterile field. 9:46:02 ACIST Syringe (86394) opened to sterile field. 9:46:03 Medline Cath Pack ([id number]) opened to sterile field. 9:46:03 Bag Decanter (2002) opened to sterile field. 9:46:04 DIAGNOSTIC WIRE .035 260cm J wire (143836) opened to sterile field. 9:46:04 MBrace Wrist Support (117755307) opened to sterile field. 9:46:05 SHEATH 6Fr Prelude Radial ([id number]) opened to sterile field. 9:46:23 Procedure started. 9:46:28 Local anesthetic to right radial artery with Lidocaine 2% by Geoff Perez MD.INITIAL ACCESS ONLY 9:47:08 Fentanyl 50 mcg I.V. was administered by Matthew Ames RN; for sedation; 9:47:13 Versed 1 mg I.V. was administered by Matthew Ames RN; for sedation; 9:47:39 A 6 Fr Short sheath was inserted into the Right Radial artery 9:47:49 A DIAGNOSTIC [place] 110cm 5 Fr catheter (347193) was advanced over the wire and used for Procedure. 9:48:35 LV angiography performed. 9:48:36 LV gram done using JAMES 9:48:44 EF : 60 % 9:49:11 Injector settings: Ml/sec: 7, Volume: 15, 9:49:24 Catheter exchanged over wire. 9:49:47 A DIAGNOSTIC AR 2 MOD 5 Fr catheter ([id number]) was advanced over the wire and used for Procedure. 9:50:50 RCA angiography performed. 9:50:55 GUIDE 6FR XBLAD 4.0 catheter (73785871) opened to sterile field. 9:51:03 Catheter exchanged over wire. 9:51:11 6 Fr XBLAD 4 guide catheter was inserted over the wire 9:52:34 LCA angiography performed. 9:53:18 Use device set TAU PCI 9:53:47 CHOICE PT Extra Support 182cm wire ([id number]) opened to sterile field. 9:53:51 INFLATOR Merit BasixCompak (YN3978) opened to sterile field. 9:54:59 Choice PT XS wire advanced. 9:55:33 Heparin Bolus 4000 units I.V. was administered by Matthew Ames RN; for anticoagulation; 9:55:55 Wire advanced across lesion. 9:57:29 Inflate balloon Inflation number: 1 A EUPHORA 2.0 x 20 Balloon ([id number]) was prepped and advanced across the Dist CX, then inflated to 11 [place] for 0:10 (min:sec). 9:58:05 Multiple inflations made at 11 Atms. 9:59:09 Balloon removed over the wire. 9:59:44 Place stent Inflation Number: 2 A MATTHEW RX 2.0 x 22 stent ([id number]) was prepped and advanced across the Dist CX. The stent was deployed at 11 [place] for 0:10 (min:sec). 10:00:32 TR BAND Standard ([id number]) opened to sterile field. 10:00:41 Stent catheter was removed intact over wire. 10:00:42 Wire removed. 10:00:43 Guide catheter removed. 10:00:53 Sheath removed intact; hemostasis achieved with Mechanical Compression to the Right Radial artery. 10:00:56 Procedure ended.(Physican Out) 10:03:17 Fluoroscopy time 05.30 minutes. 10:03:22 Flurop Dose total: 617 10:03:22 Fluoroscopy dose: 617 mGy 10:03:25 Contrast amount:Isovue 300 98ml. 10:03:27 Sharps counted by scrub and verified by R.N. 10:03:29 TR band inflated with 12cc of air. 10:03:31 Insertion/operative site no bleeding no hematoma. 10:03:33 Post Procedure Pulses reassessed and unchanged 10:03:36 Post-procedure physical assessment completed. ASA score P 2 - A patient with mild systemic disease as per Geoff Perez MD. 10:03:39 Post procedure rhythm: unchanged. 10:03:42 Estimated blood loss: 10 ml 10:03:44 Post procedure instruction explained to patient.Patient verbalizes understanding. 10:03:45 Patient needs reinforcement of post procedure teaching. 10:03:53 Procedure type changed to Cath procedure, Diagnostic procedure, LHC, LHC w/Coronaries, PCI procedure, Coronary Stent, Coronary Stent Initial 10:03:55 Procedure and supply charges have been captured, reviewed, submitted and are correct. 10:04:01 Procedure Complication : No complications 10:04:23 Vital chart was stopped 10:04:23 See physician's report for complete and final results. 10:04:26 Report given to Pre/Post Procedure Room. 10:04:30 Patient transfered to Pre/Post Procedure Room with Stretcher. 10:05:44 Procedure ended. 10:05:44 Full Disclosure recording stopped 10:05:47 End room use (Document Last) Intervention Summary Intervention Notes Time ActionType Lesion and Equipment Used Action# Pressure Duration Attributes 9:57:29 Inflate Dist CX EUPHORA 2.0 x 1 11 00:10 balloon 20 Balloon ([id number]) 9:59:44 Place stent Dist CX MATTHEW RX 2.0 x 2 11 00:10 22 stent ([id number]) Device Usage Item Name Manufacture Quantity Catalog Number Hospital Part Current Minimal Lot# / Charge Number Stock Stock Serial# Code Tegaderm 4 x 4 3M 1 [id number] [id number] [id number] 393775 5 (1626W) ACIST Hand Acist 1 13477 963219 424931 665391 5 Control (78046) Medical Systems [employer] ACIST Manifold Acist 1 91237 228539 368264 466414 5 (23830) Medical Systems Inc ACIST Syringe Acist 1 77777 112116 938596 682906 20 (22678) Medical Systems Inc Medline Cath Cardinal 1 [id number] 112375 17230 171784 5 Pack Health ([id number]) Bag Decanter Microtek 1 2001S 377530 81947 421644 5 (2001S) Medical Inc. DIAGNOSTIC WIRE [place] 1 422091 110354 500324 475128 30 .035 260cm J wire (514766) MBrace Wrist Advanced 1 140-0250-00 648384 80005 639487 5 Support Vascular (554714548) Dynamics SHEATH 6Fr Merit 1 [id number] 481183 276439 863401 5 Prelude Radial Medical ([id number]) DIAGNOSTIC Terumo 1 40-2649 354985 705130 768894 5 [place] 110cm 5 Fr catheter (258955) DIAGNOSTIC AR 2 Cardinal 1 [id number] 766850 033025 572857 20 MOD 5 Fr Health catheter (212412M) GUIDE 6FR XBLAD Cardinal 1 [id number] 614872 419244 284450 3 4.0 engageSimply (60677572) CHOICE PT Extra [place] 1 [id number] 972894 896235 933864 5 Support 182cm Scientific wire (1035719Z3) INFLATOR Merit Merit 1 KA9427 781546 701286 872140 15 [employer] Medical (PD7959) EUPHORA 2.0 x Medtronic 1 [id number] 729676 962655 586864 5 [id number] 20 Balloon ([id number]) MATTHEW RX 2.0 x Medtronic 1 [id number] 502258 8512569 646017 5 [id number] 22 stent ([id number]) TR BAND Terumo 1 [id number] 582145 036345 012167 40 Standard ([id number]) Signature Audit [place] Stage Time Signature Unsigned Intra-Procedure 03/02/2018 Eduardo Santiago 10:06:01 AM RT(R) Signatures Monitor : Eduardo Santiago RT Signature : Date : Time : [facility] [address] [place] [address]
--- NOTE | ~2018-03-02 | OP ---
PATIENT NAME: AMARILYS SANDY MEDICAL RECORD: [id number] :41 LOCATION:D.CAT ADMISSION DATE: SURGEON: ANTONIA INGRAM MD DATE OF OPERATION: 03/02/2018 PROCEDURES: 1. PTCA stent left circumflex. 2. Left heart catheterization. 3. Selective coronary angiography. 4. Left ventriculogram. INDICATION: Angina and coronary artery disease. PROCEDURE IN DETAIL: After informed consent was obtained and after a detailed description of the risks, benefits as well as alternative therapies, the patient elected to proceed with angiogram and angioplasty. The right radial area was prepped and draped in normal sterile fashion. Right radial artery was cannulated via modified Seldinger technique with placement of 6-Samoan sheath. All catheters exchanged through this sheath. FINDINGS: The left ventriculogram was performed in a standard 30-degree JAMES view, reveals good cardiac wall motion throughout all segments. Overall ejection fraction estimated 60%. SELECTIVE CORONARY ANGIOGRAPHY: 1. Left main is with no significant angiographic disease. 2. Left anterior descending has previously placed stents, these are widely patent with no significant restenosis. 3. Left circumflex has previously placed stents in the circumflex proximally and the first obtuse marginal. These are widely patent; however, the circumflex in the mid vessel has a 90% stenosis times 2. 4. The right coronary artery has total occlusion in the mid vessel. The distal right coronary artery fills via left to right collaterals off of the distal circumflex. PTCA STENT OF THE LEFT CIRCUMFLEX: The stent used was a 2.0 x 22 mm [place]. Result was 0% residual stenosis. OVERALL IMPRESSION: Successful percutaneous transluminal coronary angioplasty stent of the left circumflex going from 90% initial stenosis times 2 to 0% residual. TRANSINT:[id number] Voice Confirmation ID: [id number] DOCUMENT ID: [id number] ANTONIA INGRAM MD at 1728 CC: [id number] DICTATION DATE: 03/02/18 1006 MUSEUM TOUR GUIDE: 03/02/18 1100 DEP CLI 03/02/18 [place] [id number] [place] [id number]
[2018-03-02] MEDS ORDERED: ACETAMINOPHEN500 M1 PO (08:06)
[2018-03-02] MEDS ORDERED: DIPROLENE AF 0.50 GM TOPICAL (08:06)
[2018-03-02] MEDS ORDERED: FLOVENT DI50 MCG/DIS INH (08:07)
[2018-03-02 08:24] VITALS: BP 144/81; Ht 172.7 cm; Wt 115.9 kg
[2018-03-02 08:32] LABS: ANION GAP 13.2 mmol/L (8-16); CALCIUM 8.5 mg/dL (8.5-10.1); CREATININE - SERUM 1.2 mg/dL (0.6-1.3); POTASSIUM - SERUM 4.2 mmol/L (3.5-5.1)
[2018-03-02 08:46] LABS: BASOPHILS 0.6 % (0-2); EOSINOPHILS 4.7 % (0-7); HEMATOCRIT 39.5 % (42.0-54.0); HEMOGLOBIN 13.4 g/dL (13.5-17.5); IMMATURE GRANULOCYTES 0.2 % (0-5); LYMPHOCYTES 21.1 % (15-50); MCH 30.8 pg (26.0-34.0); MCHC 33.9 g/dL (31.0-37.0); MCV 90.8 fL (80.0-100.0); MEAN PLATELET VOLUME 9.9 fL (7.4-10.4); MONOCYTES 11.7 % (2-11); NEUTROPHILS 61.7 % (40-80); PLATELET COUNT 233 10x3/uL (130-400); RBC 4.35 10x6/uL (4.20-6.10); RDW 14.9 % (11.5-14.5); WBC 9.4 10x3/uL (4.8-10.8)
== END 2018-03-02 14:14 | disposition home or self-care (01) ==
LOC: D.CATH 07:21
PROVIDERS: Internal Medicine Interventional Cardiology
DX: I25.119 Atherosclerotic heart disease of native coronary artery with unspecified angina pectoris (principal); Z01.812 Encounter for preprocedural laboratory examination
CPT/HCPCS: 93458; C9600

== ENCOUNTER 2018-03-28 17:50 | Inpatient (IN) | payer MEDICARE, OTHER ==
[~2018-03-28] VITALS: Ht 172.7 cm; Wt 111.8 kg
[~2018-03-28 17:50] MED LIST changes: +ACETAMINOPHEN500 M1 PO; +DIPROLENE AF 0.50 GM TOPICAL; +FLOVENT DI50 MCG/DIS INH
[2018-03-28] MEDS ORDERED: MUCUS RELIEF400 MG PO (18:10)
[2018-03-28] MEDS ORDERED: ATIVAN1 MG PO (18:11)
[2018-03-28 18:45] LABS: BASOPHILS 0.6 % (0-2); EOSINOPHILS 3.4 % (0-7); HEMATOCRIT 40.4 % (42.0-54.0); HEMOGLOBIN 14.1 g/dL (13.5-17.5); IMMATURE GRANULOCYTES 0.2 % (0-5); LYMPHOCYTES 26.1 % (15-50); MCH 30.7 pg (26.0-34.0); MCHC 34.9 g/dL (31.0-37.0); MEAN PLATELET VOLUME 9.9 fL (7.4-10.4); MONOCYTES 10.9 % (2-11); NEUTROPHILS 58.8 % (40-80); PLATELET COUNT 246 10x3/uL (130-400); RBC 4.59 10x6/uL (4.20-6.10); RDW 13.9 % (11.5-14.5); WBC 10.1 10x3/uL (4.8-10.8)
[2018-03-28 19:03] LABS: ALBUMIN 3.6 g/dL (3.4-5.0); ALKALINE PHOSPHATASE 98 U/L (46-116); ALT (SGPT) 28 U/L (10-68); BILIRUBIN - TOTAL 0.36 mg/dL (0.2-1.3); CALC OSMOLALITY 279 mosm/kg (275-300); CALCIUM 8.5 mg/dL (8.5-10.1); CHLORIDE - SERUM 104 mmol/L (98-107); CREATININE - SERUM 1.2 mg/dL (0.6-1.3); GLUCOSE 111 mg/dL (74-106); POTASSIUM - SERUM 4.1 mmol/L (3.5-5.1); PROTEIN - SERUM 6.8 g/dL (6.4-8.2); SODIUM 139 mmol/L (136-145); UREA NITROGEN 16 mg/dL (7-18); eGFR NON AFRICAN AMERICAN 63 mL/min (90-120)
[2018-03-28 19:11] LABS: APTT 22.7 SECONDS (22.8-39.4)
[2018-03-28 19:12] LABS: D-DIMER-QUANTITATIVE 3.15 ug/mLFEU (0.20-0.54); INR 0.95 (0.85-1.17); PROTIME 12.3 SECONDS (11.6-15.0)
[2018-03-28 19:13] LABS: TROPONIN-I < 0.017 ng/mL (0.000-0.060)
[2018-03-29 00:12] VITALS: BP 131/84; BMI 37.4
[2018-03-29 03:53] VITALS: BP 144/67
[2018-03-29 06:01] LABS: BASOPHILS 0.9 % (0-2); EOSINOPHILS 4.6 % (0-7); HEMOGLOBIN 13.4 g/dL (13.5-17.5); IMMATURE GRANULOCYTES 0.2 % (0-5); LYMPHOCYTES 31.4 % (15-50); MCH 30.4 pg (26.0-34.0); MCHC 34.4 g/dL (31.0-37.0); MCV 88.4 fL (80.0-100.0); MEAN PLATELET VOLUME 10.2 fL (7.4-10.4); MONOCYTES 9.8 % (2-11); NEUTROPHILS 53.1 % (40-80); PLATELET COUNT 226 10x3/uL (130-400); RBC 4.41 10x6/uL (4.20-6.10); RDW 14.1 % (11.5-14.5); WBC 8.9 10x3/uL (4.8-10.8)
[2018-03-29 07:07] LABS: CALC OSMOLALITY 276 mosm/kg (275-300); CALCIUM 8.2 mg/dL (8.5-10.1); CARBON DIOXIDE 25.1 mmol/L (21.0-32.0); CHLORIDE - SERUM 104 mmol/L (98-107); CKMB 1.4 U/L (0.0-3.6); CREATINE KINASE 108 UL (21-232); GLUCOSE 104 mg/dL (74-106); POTASSIUM - SERUM 3.9 mmol/L (3.5-5.1); SODIUM 138 mmol/L (136-145); TROPONIN-I 0.018 ng/mL (0.000-0.060); UREA NITROGEN 14 mg/dL (7-18); eGFR NON AFRICAN AMERICAN 78 mL/min (90-120)
[2018-03-29 09:13] VITALS: BP 140/82
[2018-03-29 12:28] VITALS: BP 114/95
[2018-03-29 13:59] VITALS: Ht 172.7 cm; Wt 111.8 kg
[2018-03-29 16:06] VITALS: BP 146/83
[2018-03-29 19:27] VITALS: BP 138/86
[2018-03-30 04:00] VITALS: BP 98/51
[2018-03-30 09:13] VITALS: BP 140/77
[2018-03-30 11:40] VITALS: BP 134/65
[2018-03-30 16:45] VITALS: BP 137/58
[2018-03-30 20:00] VITALS: BP 132/85
[2018-03-31 04:00] VITALS: BP 117/66
[2018-03-31 09:20] VITALS: BP 119/78
[2018-03-31 14:08] VITALS: BP 100/66
[2018-03-31] MEDS ORDERED: ELIQUIS5 MG PO (14:58)
== END 2018-03-31 16:37 | disposition home or self-care (01) | DRG 176 ==
LOC: D.ER 17:50 → D.MS 20:44
PROVIDERS: Emergency Medicine; Family Medicine
DX: I26.99 Other pulmonary embolism without acute cor pulmonale (principal); D68.51 Activated protein C resistance; Z86.718 Personal history of other venous thrombosis and embolism; I10 Essential (primary) hypertension

== ENCOUNTER → 2018-10-13 08:41 | Outpatient (CLI) | payer MEDICARE, OTHER ==
[2018-03-29 13:59] VITALS: BMI 37.4
[~2018-10-13 08:41] MED LIST changes: +ATIVAN1 MG PO; +ELIQUIS5 MG PO; +MUCUS RELIEF400 MG PO
--- NOTE | 2018-10-19 14:39 | ST ---
PATIENT:AMARILYS SANDY MEDICAL RECORD: [id number] SEX: M LOCATION:[facility] ORDER #: ADMISSION DATE: 10/13/18 AGE OF PATIENT: 73 REFERRING PHYSICIAN: INTERPRETING PHYSICIAN: ANTONIA INGRAM MD DATE OF SERVICE: 10/13/2018 PROCEDURE: Nuclear stress test. INDICATION: Angina and coronary artery disease, hypertension and hyperlipidemia. He was exercised on standard Lexiscan protocol with 32 mCi of sestamibi injected at peak stress, 11 mCi were used previously for rest images. FINDINGS: Gated SPECT reveals preserved ejection fraction at 54% with decreased thickening and brightening throughout the inferior segments. SPECT imaging Cardiolite was used as a myocardial perfusion agent. There is a fixed perfusion defect inferiorly compatible with previous inferior myocardial infarction. There is no evidence of reversible changes. The remaining segments are with homogeneous uptake at rest and stress. OVERALL IMPRESSION: This is a stable nuclear stress test only showing a previous inferior myocardial infarction, ongoing ischemic burden and ejection fraction is estimated at 54%. Continue medical management of the coronary artery disease and cardiac risk factors. TRANSINT:[id number] Voice Confirmation ID: [id number] DOCUMENT ID: [id number] ANTONIA INGRAM MD at 1439 CC: NATALYA JACKSON MD [id number] DICTATION DATE: 10/14/181911 MANAGER COSTING: 10/15/18 1357 DEP CLI 10/13/18 [facility] [address] [place] [address]
== END | disposition home or self-care (01) ==
LOC: D.HCCARDIO 08:41
PROVIDERS: ATTEND Internal Medicine Interventional Cardiology
DX: I25.10 Atherosclerotic heart disease of native coronary artery without angina pectoris (principal)

== ENCOUNTER → 2019-11-20 09:24 | Outpatient (CLI) | payer MEDICARE, OTHER ==
[2018-03-29 13:59] VITALS: BMI 37.4
== END | disposition home or self-care (01) ==
LOC: D.HCCARDIO 09:24
PROVIDERS: ATTEND Internal Medicine Cardiovascular Disease
DX: I25.10 Atherosclerotic heart disease of native coronary artery without angina pectoris (principal)

== ENCOUNTER 2019-12-19 10:47 | Outpatient (CLI) | payer MEDICARE, OTHER ==
[~2019-12-19] VITALS: Ht 172.7 cm; Wt 115.6 kg
--- NOTE | ~2019-12-19 | HEMODYNAMI ---
PATIENT:AMARILYS SANDY MEDICAL RECORD: [id number] : 41 LOCATION:D.CAT ADMISSION DATE: 12/19/19 Generatedon:12/19/201913:08 Patient name: AMARILYS SANDY Patient #: [id number] SSN: [id number] : 1945 Date of study: 12/19/2019 Page: Of Hemodynamic Procedure Report Patient Data Patient Demographics Procedure consent was obtained First Name: AMARILYS Gender: Male Last Name: DU : 1945 Middle Initial: L Age: 74 year(s) Patient #: [id number] Race: SSN: [id number] Additional ID: [id number] Contact details Address: [place] [address] State: [place] City: [place] Zip code: [address] Past Medical History Allergies Allergen Reaction Date Comments Reported Other allergy 10/16/2016 Avelox, cepholosporino, Clindamycin, Dilaudid,Keflex, Levotyroxin, Minipreso, PCN, Norvaco, Pravastatin, Sulfa,Zocor. Other allergy 12/19/2019 AVELOX, CEPHALOSPORINS, CLINDAMYCIN, DILAUDID, KEFLEX, LEVOTHYROXINE SODIUM, MINIPRESS, PCN, PRAVASTATIN, SULFA, ZOCOR Admission Admission Data Admission Date: 12/19/2019 Admission Time: 10:47 Arrival Date: 12/19/2019 Arrival Time: 0:00 Admit Source: Other Height (in.): 68 BSA: 2.23 (m2) Height (cm.): 172.72 BMI: 37.4 (kg/m2) Weight (lbs.): 246 Weight (kg.): 111.58 Lab Results Lab Result Date: 12/19/2019 Lab Result Time: 0:00 Biochemistry Name Units Result Min Max BUN mg/dl 12 --(-*--)-- 7 18 Creatinine mg/dl 1.1 --(--*-)-- 0.6 1.3 eGFR ml/min 69 *-(----)-- 90 120 NONAFRICAN CBC Name Units Result Min Max Hematocrit % 44.4 --(*---)-- 42 54 Hemoglobin g/dl 14.9 --(-*--)-- 13.5 17.5 Procedure Procedure Types Cath Procedure Diagnostic Procedure Cardioversion External Procedure Description Procedure Date Procedure Date: 12/19/2019 Procedure Start Time: 12:57 Procedure End Time: 13:06 Procedure Staff Name Function Sandip Horne MD Performing Physician Cinthya Hutchins RT Monitor Bertha Weems RN Nurse Tobias Trevino Additional personnel Procedure Data Cath Procedure Fluoroscopy Diagnostic fluoroscopy Total fluoroscopy Time: 0 time: 0 min min Diagnostic fluoroscopy Total fluoroscopy dose: 0 dose: 0 mGy mGy Estimated blood loss: 0 ml Procedure Complications No complications Procedure Medications Medication Administration Route Dosage Oxygen etCO2 Nasal cannula 3 l/min 0.9% NaCl I.V. 100 ml/hr Refer to Anesthesia Notes for Sedation Medications Hemodynamics Rest BSA: 2.23 (m2) HGB: 14.9 (g/dl) O2 Consumption: Estimated: 258.27 (ml/min) O2 Consumption indexed: Estimated:115.82 (ml/min/m) Heart Rate: 73 (bpm) Snapshots Pre Cath Intra NCS Post Cath Vital Signs Time Heart Resp SPO2 etCO2 NIBP (mmHg) Rhythm Pain Sedation Rate (ipm) (%) (mmHg) Status Level (bpm) 12:51:10 62 9 100 0 179/98(132) NSR 0 (11) 10(A) , No pain 12:55:30 61 18 99 0 159/93(138) NSR 0 (11) 10(A) , No pain 12:59:56 71 15 77 0 131/76(112) NSR 0 (11) 10(A) , No pain 13:04:10 71 12 98 0 137/78(105) NSR 0 (11) 10(A) , No pain Medications Time Medication Route Dose Verified Delivered Reason Notes Effective ness by by 12:54:58 Oxygen etCO2 3 Bertha Bertha Per Nasal l/min Dank Weems physician cannula RN RN 12:55:15 0.9% NaCl I.V. 100 Sandipconstantin Stone Per ml/hr physician ALO Palomo RN 12:55:23 Refer to Sandip Stone Anesthesia ColeenShahram Weems, Notes for MD HICKEY Sedation Medications Procedure Log Time Note 12:14:39 Informed consent obtained and on chart 12:15:21 Procedure Status Cardioversion. 12:15:22 Time tracking: Regular hours (M-F 7:00 - 5:00) 12:15:25 Plan of Care:Hemodynamics will remain stable., Cardiac rhythm will remain stable., Comfort level will be maintained., Respiratory function will remain adequate., Patient/ family verbilizes understanding of procedure., Procedure tolerated without complication., Recovers from procedure without complications.. 12:15:37 H&P Date Dictated: 12/11/2019 Within 30 days and on chart., H&P Addendum completed by physician on day of procedure. (MUST COMPLETE FOR ALL OUTPATIENTS). 12:16:32 Patient allergic to Other allergyAVELOX, CEPHALOSPORINS, CLINDAMYCIN, DILAUDID, KEFLEX, LEVOTHYROXINE SODIUM, MINIPRESS, PCN, PRAVASTATIN, SULFA, ZOCOR 12:16:46 Patient Weight : 246 lbs 12:16:49 Patient Height : 68 inches 12:34:04 Bertha Weems RN sent for patient. Start room use. 12:42:42 Arrival Date: 12/19/2019 12:00:00 AM 12:42:44 Admit Source: Other 12:44:29 Lab Result : BUN 12 mg/dl 12:44:29 Lab Result : Hemoglobin 14.9 g/dl 12:44:29 Lab Result : eGFR NONAFRICAN 69 ml/min 12:44:29 Lab Result : Creatinine 1.1 mg/dl 12:44:29 Lab Result : Hematocrit 44.4 % 12:44:37 Patient received from Pre/Post Procedure Room to CCL 2 Alert and oriented. Tansferred to table in Supine position. 12:44:39 Warm blankets applied, and shaun hugger turned on for patient comfort. 12:44:39 Correct patient and procedure confirmed by team. 12:44:40 ECG and BP/O2 sat monitors applied to patient. 12:44:41 Full Disclosure recording started 12:44:43 Pre-procedure instructions explained to patient. 12:44:43 Pre-op teaching completed and patient verbalized understanding. 12:44:45 Family in waiting room. 12:44:46 Patient NPO since Midnight. 12:44:49 Is the patient allergic to Iodine/contrast media? No. 12:44:51 Was the patient premedicated? N/A 12:45:21 Is patient on blood thinner?Yes 12:45:26 ACC The patient was administered the following blood thiners within the last 24 hours: Eliquis 12:45:28 Patient diabetic? No. 12:45:30 If diabetic: On Metformin? N/A 12:45:31 ----Pre-sedation anethsthesia assessment.---- 12:45:34 Previous problem with sedation/anesthesia? No ? 12:45:35 Snore? No 12:45:36 Sleep apnea? No 12:45:38 Deviated septum? No 12:45:39 Opens mouth fully? Yes 12:45:40 Sticks out tongue? Yes 12:45:42 Airway obstruction? No ? 12:45:44 Dentures? No ? 12:45:49 Patient pain scale 0/10 ?. 12:45:56 IV patent on arrival in left antecubital with 0.9% NaCl at [facility]. 12:46:00 Lab results completed and on chart. 12:46:03 Alarms reviewed by R. N. 12:46:03 Sharps counted by scrub and verified by R.N. 12:49:56 Vital chart was started 12:49:58 Baseline sample Acquired. 12:50:04 Rhythm: atrial fibrillation 12:50:24 Quick Combo opened to sterile field. 12:52:08 Tobias Trevino present and monitoring patient for TIVA. 12:54:58 Oxygen 3 l/min etCO2 Nasal cannula was administered by Bertha Weems RN; Per physician; Verbal order read back and verified. 12:55:15 0.9% NaCl 100 ml/hr I.V. was administered by Bertha Weems RN; Per physician; Verbal order read back and verified. 12:55:23 Refer to Anesthesia Notes for Sedation Medications was administered by Bertha Weems RN; ; Verbal order read back and verified. 55:44 --------ALL STOP TIME OUT------ :44 Final Timeout: patient, procedure, and site verified with staff and physician. All members of the team are in agreement. 12:55:48 Fire Safety Assessment: C--Open oxygen or nitrous oxide is being used. 12:55:52 Physical assessment completed. ASA score P 2 - A patient with mild systemic disease as per Sandip Horne MD. 12:55:56 Sedation plan: TIVA Medication:Propofol 12:57:25 Procedure started. 12:57:27 ------Cardioversion------ 12:58:38 Quick combo pads placed on patients chest and back. 12:58:49 Defibrillator synced and charged to 200 Joules. 12:58:55 Shock delivered. 12:59:20 Patient cardioverted to sinus rhythm . 13:00:41 Procedure ended.(Physican Out) 13:02:37 Fluoroscopy time 00.00 minutes. 13:02:39 Flurop Dose total: 0 13:02:39 Fluoroscopy dose: 0 mGy 13:02:40 Dose Area Product 0 mGy/cm. 13:02:45 Post-procedure physical assessment completed. ASA score P 2 - A patient with mild systemic disease as per Sandip Horne MD. 13:02:48 Post procedure rhythm: sinus rhythm 13:03:20 Estimated blood loss: 0 ml 13:05:54 Post procedure instruction explained to patient.Patient verbalizes understanding. 13:05:55 Patient needs reinforcement of post procedure teaching. 13:06:11 Procedure and supply charges have been captured, reviewed, submitted and are correct. 13:06:13 Procedure Complication : No complications 13:06:44 Vital chart was stopped 13:06:47 Operative report dictated upon procedure completion. 13:06:47 See physician's report for complete and final results. 13:06:49 Report given to Pre/Post Procedure Room. 13:06:52 Patient transfered to Pre/Post Procedure Room with Bed. 13:06:54 Procedure ended. 13:06:54 Full Disclosure recording stopped 13:06:59 End room use (Document Last) 13:07:37 Procedure ended.(Physican Out) Device Usage Item Manufacture Quantity Catalog Hospital Part Current Minimal Lot# / Name Number Charge Number Stock Stock Garry hwang# Code SharedReviews 1 [id number] Combo Signature Audit [place] Stage Time Signature Unsigned Intra-Procedure 12/19/2019 Cinthya Hutchins 1:07:16 PM RT(R) Intra-Procedure 12/19/2019 Bertha Weems, 1:07:37 PM RN Intra-Procedure 12/19/2019 Sandip Cardozo 1:08:11 PM Shahram Esquivel Performing Physician : Signature : Sandip Horne MD Date : Time : Monitor : Cinthya Hutchins Signature : RT Date : Time : Nurse : Bertha Weems, Signature : RN Date : Time : [address] [place] [address]
--- NOTE | ~2019-12-19 | OP ---
PATIENT NAME: AMARILYS MCMILLAN MEDICAL RECORD: [id number] :41 LOCATION:D.CAT ADMISSION DATE: SURGEON: ROBEL ROSA MD DATE OF OPERATION: 12/19/2019 PROCEDURE: Cardioversion note. INDICATION: Atrial fibrillation. SUMMARY OF PROCEDURE: After general sedation via TIVA via anesthesia, a single synchronized shock was successful in restoring atrial fibrillation to normal sinus rhythm. IMPRESSION: Successful cardioversion on Amarilys Mcmillan. During the procedure, the patient was monitored continuously with pulse oximetry, telemetry, and noninvasive blood pressure monitoring. TRANSINT:[id number] Voice Confirmation ID: [id number] DOCUMENT ID: [id number] ROBEL ROSA MD CC: [id number] DICTATION DATE: 12/19/19 1302 MANAGER SPECIAL EVENTS: 12/19/192221 DEP CLI 12/19/19 [id number] [place] [address]
[2019-12-19] MEDS ORDERED: SORINE80 MG PO (11:17)
[2019-12-19] MEDS ORDERED: CHLOR-TRIMETON4 MG PO (11:17)
[2019-12-19 11:39] VITALS: BP 168/90; Ht 172.7 cm; Wt 115.6 kg
[2019-12-19 11:42] LABS: BASOPHILS 0.4 % (0-2); HEMATOCRIT 44.4 % (42.0-54.0); HEMOGLOBIN 14.9 g/dL (13.5-17.5); IMMATURE GRANULOCYTES 0.1 % (0-5); MCH 30.5 pg (26.0-34.0); MCHC 33.6 g/dL (31.0-37.0); MEAN PLATELET VOLUME 9.5 fL (7.4-10.4); MONOCYTES 10.5 % (2-11); PLATELET COUNT 216 10x3/uL (130-400); RBC 4.88 10x6/uL (4.20-6.10); RDW 13.8 % (11.5-14.5); WBC 6.8 10x3/uL (4.8-10.8)
[2019-12-19 11:51] LABS: ANION GAP 10.9 mmol/L (8-16); CALCIUM 8.7 mg/dL (8.5-10.1); CARBON DIOXIDE 29.3 mmol/L (21.0-32.0); CREATININE - SERUM 1.1 mg/dL (0.6-1.3); POTASSIUM - SERUM 4.2 mmol/L (3.5-5.1)
[2019-12-19 12:25] LABS: INR 1.21 (0.85-1.17); PROTIME 15.3 SECONDS (11.6-15.0)
--- NOTE | 2019-12-19 13:10 | NUR ---
PT REC'D TO ROOM 5 VIA STRETCHER FROM MARINE PIPEFITTER. MONITORS ESTAB. PT AWAKE, ORIENTED. SEE FABRIC WORKER FITTER. ALARMS ON AND C/L IN REACH.
--- NOTE | 2019-12-19 13:25 | NUR ---
CM - SR, VSS. PT GIVEN SANDWICH TRAY AND COFFEE PER REQUEST. ALARMS ON AND C/L IN REACH.
--- NOTE | 2019-12-19 13:55 | NUR ---
CM - NSR, VSS. PIV D/C'D INTACT, DSG APPLIED. PT ALLOWED UP TO GET DRESSED.
--- NOTE | 2019-12-19 14:10 | NUR ---
ALL DISCHARGE INSTRUCTIONS REVIEWED WITH PT - INCLUDING RESTRICITONS, MEDS AND F/U APPT. PT VERBALIZES UNDERSTANDING.
--- NOTE | 2019-12-19 14:15 | NUR ---
PT TAKEN DOWN FOR D/C'. PT'S RIDE ARRIVED AT 1445 - PT D/C'D TO PRIVATE VEHICLE WITH ALL PAPER WORK AND BELONGINGS.
== END 2019-12-19 14:15 | disposition home or self-care (01) ==
LOC: D.CATH 10:47
PROVIDERS: ATTEND Internal Medicine Interventional Cardiology
DX: I48.91 Unspecified atrial fibrillation (principal); I25.2 Old myocardial infarction; E78.5 Hyperlipidemia, unspecified; I10 Essential (primary) hypertension; Z72.0 Tobacco use; I25.10 Atherosclerotic heart disease of native coronary artery without angina pectoris